=== PATIENT | female | born 1960 | race Caucasian/White ===

== ENCOUNTER 2017-05-11 13:54 | Observation (INO) | payer OTHER ==
[~2017-05-11] VITALS: Ht 170.2 cm; Wt 151.9 kg
[~2017-05-11 13:54] MED LIST: ATEN50TA PO; BENA40TA PO; GABA600T PO; GLIM2TAB PO; LEVO175T2 PO; LISD40 PO; LORA-392 PO; MEDR4PAK PO; METF1000 PO; NAPR500 PO; ROPI1TAB PO; VENL150T PO; ZANT150T2 PO
[2017-05-11] MEDS ORDERED: ACETAMINOPHEN/HYDROcodone 325 MG/5 MG TAB PO PRN (18:15)
[2017-05-11] MEDS ORDERED: NALOXONE HCL 0.4 MG/ML AMP IV PUSH PRN (18:15)
[2017-05-11] MEDS ORDERED: MAGNESIUM HYDROXIDE SUSP 30 ML CUP PO PRN (18:15)
[2017-05-11] MEDS ORDERED: ONDANSETRON HCL 4 MG/2 ML VIAL IVP PRN (18:15)
[2017-05-11] MEDS ORDERED: SODIUM CHLORIDE 0.9% FLUSH 10 ML FLUSH IV FLUSH PRN (18:15)
[2017-05-11 20:00] VITALS: BP 134/63; PULSE 74; RESP 22; TEMP 97.1; O2SAT 96
[2017-05-11] MEDS: SODIUM CHLOR 0.9% 1000 ML INJ 1,000 ML IV SCH (20:31)
[2017-05-11] MEDS: SODIUM CHLORIDE 0.9% FLUSH 10 ML FLUSH IV FLUSH SCH (20:31)
[2017-05-11] MEDS ORDERED: ENOXAPARIN SODIUM 40 MG/0.4 ML SYRINGE SQ SCH (21:00)
[2017-05-11 23:33] VITALS: O2SAT 97
[2017-05-12] VITALS: BP 140/63; PULSE 72; RESP 22; TEMP 97.5; O2SAT 97
[2017-05-12] MEDS: SODIUM CHLOR 0.9% 1000 ML INJ 1,000 ML IV SCH ×2 (04:13→14:11)
[2017-05-12] MEDS: ACETAMINOPHEN/HYDROcodone 325 MG/10 MG TAB PO PRN ×2 (04:17→14:34)
[2017-05-12 07:50] VITALS: BP 153/67; PULSE 73; RESP 20; TEMP 97.4; O2SAT 96
[2017-05-12] MEDS: SODIUM CHLORIDE 0.9% FLUSH 10 ML FLUSH IV FLUSH SCH (08:08)
[2017-05-12] MEDS: LACTOBACILLUS ACIDOPHILUS TAB PO SCH ×2 (08:08→13:23)
[2017-05-12 08:25] LABS: AUTOMATED NEUTROPHIL # 4.6 TH/MM3 (1.8-7.7); BASOPHIL % 0.6 % (0.0-2.0); EOSINOPHIL # 0.4 TH/MM3 (0-0.4); EOSINOPHIL % 5.2 % (0.0-4.0); HEMATOCRIT 32.4 % (35.0-46.0); HEMOGLOBIN 11.2 GM/DL (11.6-15.3); LYMPH % 27.2 % (9.0-44.0); LYMPHOCYTE # 2.1 TH/MM3 (1.0-4.8); MEAN CELL VOLUME 80.7 FL (80.0-100.0); MEAN CORPUSCULAR HEMOGLOBIN 27.8 PG (27.0-34.0); MEAN CORPUSCULAR HGB CONC 34.5 % (32.0-36.0); MEAN PLATELET VOLUME 9.3 FL (7.0-11.0); MONO % 7.9 % (0.0-8.0); MONOCYTE # 0.6 TH/MM3 (0-0.9); NEUT % 59.1 % (16.0-70.0); PLATELET COUNT 163 TH/MM3 (150-450); RED BLOOD COUNT 4.01 MIL/MM3 (4.00-5.30); RED CELL DISTRIBUTION WIDTH 14.8 % (11.6-17.2); WHITE BLOOD COUNT 7.7 TH/MM3 (4.0-11.0)
[2017-05-12 08:49] LABS: CHLORIDE 104 MEQ/L (98-107); SODIUM (NA) 138 MEQ/L (136-145)
[2017-05-12 08:52] LABS: ALBUMIN 2.7 GM/DL (3.4-5.0); BICARBONATE 27.4 MEQ/L (21.0-32.0); BLOOD UREA NITROGEN 19 MG/DL (7-18); CALCIUM 8.1 MG/DL (8.5-10.1); GLUCOSE,RANDOM 124 MG/DL (74-106)
[2017-05-12 08:55] LABS: ALT (GPT) 23 U/L (10-53); AST (GOT) 15 U/L (15-37); CREATININE 0.76 MG/DL (0.50-1.00); GLOMERULAR FILTRATION RATE 79 ML/MIN (>89)
[2017-05-12 08:57] LABS: TOTAL BILIRUBIN ADULT 0.5 MG/DL (0.2-1.0); TOTAL PROTEIN 6.7 GM/DL (6.4-8.2)
[2017-05-12 08:58] LABS: ALKALINE PHOSPHATASE 78 U/L (45-117)
--- NOTE | 2017-05-12 10:02 | HHI.HP ---
HPI Service [facility] Primary Care Physician Unknown Admission Diagnosis Pneumonia Diagnoses: (1) Abnormal urinalysis (2) Pneumonia Chief Complaint: Shortness of breath Cough Fever and chills Travel History International Travel<30 Days: No Contact w/Intl Traveler <30 Da: No Traveled to Known Affected Are: No History of Present Illness This is a pleasant 56-year-old female patient with a known medical history of anxiety depression, diabetes, hypertension, asthma and GERD who presented to the ED with complaints of productive cough, shortness of breath, subjective fever and chills 4 days. Patient states evening she started to develop a cough with yellow phlegm, states she did have subjective fevers although she did not check her temperature at home with associated chills and shortness of breath. Patient presented with elevated d-dimer, CT of the chest performed showing no PE. There was patchy airspace disease noted, diagnosed with bronchopneumonia. There was also found that patient had an abnormal UA and ED. Placed on antibiotics reflectively. Review of Systems Constitutional: COMPLAINS OF: Fever, Chills Eyes: DENIES: Blurred vision, Diplopia Respiratory: COMPLAINS OF: Cough, Sputum production, Shortness of breath Cardiovascular: DENIES: Chest pain Gastrointestinal: DENIES: Abdominal pain, Black stools, Diarrhea, Nausea, Vomiting Musculoskeletal: DENIES: Joint pain Neurologic: DENIES: Abnormal gait Psychiatric: COMPLAINS OF: Anxiety Except as stated in HPI: all other systems reviewed are Neg Past Family Social History Past Medical History Hypertension Diabetes Thyroid disease Anxiety and depression Asthma GERD Past Surgical History Thyroidectomy Cholecystectomy Tonsillectomy D&C Hysterectomy Reported Medications Active Reported Vyvanse (Lisdexamfetamine Dimesylate) 40 Mg Cap 50 Mg PO DAILY Ropinirole 1 Mg Tab 2 Mg PO HS Atenolol 50 Mg Tab 50 Mg PO DAILY Venlafaxine ER 24 HR (Venlafaxine HCl) 150 Mg Tab 150 Mg PO DAILY Benazepril (Benazepril HCl) 40 Mg Tab 40 Mg PO DAILY Zantac (Ranitidine HCl) 150 Mg Tab 150 Mg PO DAILY Levothyroxine (Levothyroxine Sodium) 175 Mcg Tab 175 Mcg PO DAILY Ativan (Lorazepam) 0.5 Mg Tab 0.5 Mg PO Q8H PRN Gabapentin 600 Mg Tab 600 Mg PO TID Glimepiride 2 Mg Tab 2 Mg PO DAILY Take with breakfast or first main meal Metformin (Metformin HCl) 1,000 Mg Tab 1,000 Mg PO BIDPC Allergies: Coded Allergies: No Known Allergies (Verified Allergy, Unknown, 05/11/17) Active Ordered Medications Current Medications Medications (Trade) Dose Ordered Sig/Marielena Route Start Time Stop Time Status Last Admin Sodium Chloride 1,000 ml @ 100 mls/hr Q10H IV 05/11/17 18:11 05/12/17 04:13 (NS Flush) 2 ml UNSCH PRN IV FLUSH 05/11/17 18:15 (NS Flush) 2 ml BID IV FLUSH 05/11/17 21:00 05/11/17 20:31 (Zofran Inj) 4 mg Q6H PRN IVP 05/11/17 18:15 (Lovenox Inj) 40 mg Q24H SQ 05/11/17 21:00 05/11/17 20:31 ([place] 5-325 Mg) 1 tab Q4H PRN PO 05/11/17 18:15 ([place] 10-325 Mg) 1 tab Q4H PRN PO 05/11/17 18:15 05/12/17 04:17 (Narcan Inj) 0.4 mg UNSCH PRN IV PUSH 05/11/17 18:15 (Milk Of Magnesia Liq) 30 ml Q12H PRN PO 05/11/17 18:15 (Lactinex) 1 tab TID PO 05/12/17 09:00 05/12/17 13:23 Ceftriaxone Sodium 1000 mg/ Sodium Chloride 100 ml @ 200 mls/hr Q24H IV 05/12/17 17:00 Azithromycin 500 mg/Sodium Chloride 250 ml @ 250 mls/hr Q24H IV 05/12/17 18:00 Family History Maternal medical history significant for COPD. Paternal medical history significant for pancreatic cancer. Social History Patient denies any tobacco use, alcohol or illicit drug use. Physical Exam Vital Signs Vital Signs Date Time Temp Pulse Resp B/P (MAP) Pulse Ox O2 Delivery O2 Flow Rate FiO2 05/12/17 00:00 97.5 72 22 140/63 (88) 97 05/11/17 23:33 97 Nasal Cannula 3.00 05/11/17 20:00 97.1 74 22 134/63 (86) 96 Physical Exam GENERAL: Well-developed, well-nourished obese female patient in [facility]. SKIN: Warm and dry. No rash. HEAD: Normocephalic. Atraumatic. EYES: Pupils equal and round. No scleral icterus. No injection or drainage. ENT: No nasal bleeding or discharge. Mucous membranes pink and moist. NECK: Supple. Trachea midline. CARDIOVASCULAR: Regular rate and rhythm. S1, S2 noted. No murmur appreciated. RESPIRATORY: No accessory muscle use. Right posterior lung field expiratory wheezing. Breath sounds equal bilaterally. GASTROINTESTINAL: Abdomen soft, non-tender, nondistended. Normoactive bowel sounds x4. MUSCULOSKELETAL: No obvious deformities. Extremities without clubbing, cyanosis , or edema. NEUROLOGICAL: Awake and alert. No obvious cranial nerve deficits. Motor grossly within normal limits. 5/5 muscle strength in bilateral upper and lower extremities. Normal speech. PSYCHIATRIC: Appropriate mood and affect; insight and judgment normal. Laboratory Laboratory Tests Test 05/12/17 07:45 White Blood Count 7.7 Red Blood Count 4.01 Hemoglobin 11.2 Hematocrit 32.4 Mean Corpuscular Volume 80.7 Mean Corpuscular Hemoglobin 27.8 Mean Corpuscular Hemoglobin Concent 34.5 Red Cell Distribution Width 14.8 Platelet Count 163 Mean Platelet Volume 9.3 Neutrophils (%) (Auto) 59.1 Lymphocytes (%) (Auto) 27.2 Monocytes (%) (Auto) 7.9 Eosinophils (%) (Auto) 5.2 Basophils (%) (Auto) 0.6 Neutrophils # (Auto) 4.6 Lymphocytes # (Auto) 2.1 Monocytes # (Auto) 0.6 Eosinophils # (Auto) 0.4 Basophils # (Auto) 0.0 CBC Comment DIFF FINAL Differential Comment Blood Urea Nitrogen 19 Creatinine 0.76 Random Glucose 124 Total Protein 6.7 Albumin 2.7 Calcium Level 8.1 Alkaline Phosphatase 78 Aspartate Amino Transf (AST/SGOT) 15 Alanine Aminotransferase (ALT/SGPT) 23 Total Bilirubin 0.5 Sodium Level 138 Potassium Level 4.2 Chloride Level 104 Carbon Dioxide Level 27.4 Anion Gap 7 Estimat Glomerular Filtration Rate 79 Result Diagram: 05/12/17 0745 05/12/17 0745 Septic Shock Reassessment Septic shock perfusion: reassessment completed Caprini VTE Risk Assessment Caprini VTE Risk Assessment: No/Low Risk (score <= 1) Caprini Risk Assessment Model Point Value = 1 Point Value = 2 Point Value = 3 Point Value = 5 Age 41-60 Minor surgery BMI > 25 kg/m2 Swollen legs Varicose veins or History of unexplained or recurrent spontaneous Oral contraceptives or hormone replacement Sepsis (< 1 month) Serious lung disease, including pneumonia (< 1 month) Abnormal pulmonary function Acute myocardial infarction Congestive heart failure (< 1 month) History of inflammatory bowel disease Medical patient at bed rest Age 61-74 Arthroscopic surgery Major open surgery (> 45 min) Laparoscopic surgery (> 45 min) Malignancy Confined to bed (> 72 hours) Immobilizing plaster cast Central venous access Age >= 75 History of VTE Family history of VTE Factor V Leiden Prothrombin [id number] Lupus anticoagulant Anticardiolipin antibodies Elevated serum homocysteine Heparin-induced thrombocytopenia Other congenital or acquired thrombophilia Stroke (< 1 month) Elective arthroplasty Hip, pelvis, or leg fracture Acute spinal cord injury (< 1 month) Prophylaxis Regimen Total Risk Factor Score Risk Level Prophylaxis Regimen 0-1 Low Early ambulation 2 Moderate Order ONE of the following: *Sequential Compression Device (SCD) *Heparin 5000 units SQ BID 3-4 Higher Order ONE of the following medications: *Heparin 5000 units SQ TID *Enoxaparin/Lovenox 40 mg SQ daily (WT < 150 kg, CrCl > 30 mL/min) *Enoxaparin/Lovenox 30 mg SQ daily (WT < 150 kg, CrCl > 10-29 mL/min) *Enoxaparin/Lovenox 30 mg SQ BID (WT < 150 kg, CrCl > 30 mL/min) AND/OR *Sequential Compression Device (SCD) 5 or more Highest Order ONE of the following medications: *Heparin 5000 units SQ TID (Preferred with Epidurals) *Enoxaparin/Lovenox 40 mg SQ daily (WT < 150 kg, CrCl > 30 mL/min) *Enoxaparin/Lovenox 30 mg SQ daily (WT < 150 kg, CrCl > 10-29 mL/min) *Enoxaparin/Lovenox 30 mg SQ BID (WT < 150 kg, CrCl > 30 mL/min) AND *Sequential Compression Device (SCD) Assessment and Plan Problem List: (1) Pneumonia ICD Code: J18.9 - Pneumonia, unspecified organism Plan: Patient presented with shortness of breath, wheezing, cough, subjective fever and chills. Chest x-ray reviewed showing minimal basilar atelectasis. D-dimer was elevated on presentation. CTA was performed and reviewed showing no evidence of PE. Patchy airspace disease at the right lung base most characteristic of bronchopneumonia. CBC and BMP reviewed, essentially unremarkable. Afebrile. No leukocytosis. Was placed on ceftriaxone and azithromycin IV added lactobacillus. Given IV fluids. Pain control with [place] as needed. Patient symptoms have improved since presentation, patient states she feels much better. Required supplemental O2 overnight. Doing well on room air. (2) Abnormal urinalysis ICD Code: R82.90 - Unspecified abnormal findings in urine Plan: Urine culture showing no growth for 24 hours. Assessment and Plan We will discharge patient home with p.o. antibiotics and short steroid taper for wheezing. Encouraged follow-up with PCP. Discussed Condition With Patient Corinne,[place] ZHONG May 12, 2017 10:02
[2017-05-12 11:50] VITALS: BP 160/76; PULSE 68; RESP 20; TEMP 98; O2SAT 96
--- NOTE | 2017-05-12 12:23 | HHI.HP ---
[facility] Ad[facility] Diagnosis Diagnoses: Travel History International Travel<30 Days: No Contact w/Intl Traveler <30 Da: No Traveled to Known Affected Are: No Past Family Social History Allergies: Coded Allergies: No Known Allergies (Verified Allergy, Unknown, 05/11/17) Physical Exam Vital Signs Vital Signs Date Time Temp Pulse Resp B/P (MAP) Pulse Ox O2 Delivery O2 Flow Rate FiO2 05/12/17 00:00 97.5 72 22 140/63 (88) 97 05/11/17 23:33 97 Nasal Cannula 3.00 05/11/17 20:00 97.1 74 22 134/63 (86) 96 Physical Exam GENERAL: This is a well-nourished, well-developed patient, in no apparent distress. SKIN: No rashes, ecchymoses or lesions. Cool and dry. HEAD: Atraumatic. Normocephalic. No temporal or scalp tenderness. EYES: Pupils equal round and reactive. Extraocular motions intact. No scleral icterus. No injection or drainage. ENT: Nose without bleeding, purulent drainage or septal hematoma. Throat without erythema, tonsillar hypertrophy or exudate. Uvula midline. Airway patent. NECK: Trachea midline. No JVD or lymphadenopathy. Supple, nontender, no meningeal signs. CARDIOVASCULAR: Regular rate and rhythm without murmurs, gallops, or rubs. RESPIRATORY: Clear to auscultation. Breath sounds equal bilaterally. No wheezes , rales, or rhonchi. GASTROINTESTINAL: Abdomen soft, non-tender, nondistended. No hepato-splenomegaly , or palpable masses. No guarding. MUSCULOSKELETAL: Extremities without clubbing, cyanosis, or edema. No joint tenderness, effusion, or edema noted. No calf tenderness. Negative Homans sign bilaterally. NEUROLOGICAL: Awake and alert. Cranial nerves II through XII intact. Motor and sensory grossly within normal limits. Five out of 5 muscle strength in all muscle groups. Normal speech. Laboratory Laboratory Tests Test 05/12/17 07:45 White Blood Count 7.7 Red Blood Count 4.01 Hemoglobin 11.2 Hematocrit 32.4 Mean Corpuscular Volume 80.7 Mean Corpuscular Hemoglobin 27.8 Mean Corpuscular Hemoglobin Concent 34.5 Red Cell Distribution Width 14.8 Platelet Count 163 Mean Platelet Volume 9.3 Neutrophils (%) (Auto) 59.1 Lymphocytes (%) (Auto) 27.2 Monocytes (%) (Auto) 7.9 Eosinophils (%) (Auto) 5.2 Basophils (%) (Auto) 0.6 Neutrophils # (Auto) 4.6 Lymphocytes # (Auto) 2.1 Monocytes # (Auto) 0.6 Eosinophils # (Auto) 0.4 Basophils # (Auto) 0.0 CBC Comment DIFF FINAL Differential Comment Blood Urea Nitrogen 19 Creatinine 0.76 Random Glucose 124 Total Protein 6.7 Albumin 2.7 Calcium Level 8.1 Alkaline Phosphatase 78 Aspartate Amino Transf (AST/SGOT) 15 Alanine Aminotransferase (ALT/SGPT) 23 Total Bilirubin 0.5 Sodium Level 138 Potassium Level 4.2 Chloride Level 104 Carbon Dioxide Level 27.4 Anion Gap 7 Estimat Glomerular Filtration Rate 79 Result Diagram: 05/12/17 0745 05/12/17 0745 Caprini VTE Risk Assessment Caprini Risk Assessment Model Point Value = 1 Point Value = 2 Point Value = 3 Point Value = 5 Age 41-60 Minor surgery BMI > 25 kg/m2 Swollen legs Varicose veins or History of unexplained or recurrent spontaneous Oral contraceptives or hormone replacement Sepsis (< 1 month) Serious lung disease, including pneumonia (< 1 month) Abnormal pulmonary function Acute myocardial infarction Congestive heart failure (< 1 month) History of inflammatory bowel disease Medical patient at bed rest Age 61-74 Arthroscopic surgery Major open surgery (> 45 min) Laparoscopic surgery (> 45 min) Malignancy Confined to bed (> 72 hours) Immobilizing plaster cast Central venous access Age >= 75 History of VTE Family history of VTE Factor V Leiden Prothrombin [id number] Lupus anticoagulant Anticardiolipin antibodies Elevated serum homocysteine Heparin-induced thrombocytopenia Other congenital or acquired thrombophilia Stroke (< 1 month) Elective arthroplasty Hip, pelvis, or leg fracture Acute spinal cord injury (< 1 month) Prophylaxis Regimen Total Risk Factor Score Risk Level Prophylaxis Regimen 0-1 Low Early ambulation 2 Moderate Order ONE of the following: *Sequential Compression Device (SCD) *Heparin 5000 units SQ BID 3-4 Higher Order ONE of the following medications: *Heparin 5000 units SQ TID *Enoxaparin/Lovenox 40 mg SQ daily (WT < 150 kg, CrCl > 30 mL/min) *Enoxaparin/Lovenox 30 mg SQ daily (WT < 150 kg, CrCl > 10-29 mL/min) *Enoxaparin/Lovenox 30 mg SQ BID (WT < 150 kg, CrCl > 30 mL/min) AND/OR *Sequential Compression Device (SCD) 5 or more Highest Order ONE of the following medications: *Heparin 5000 units SQ TID (Preferred with Epidurals) *Enoxaparin/Lovenox 40 mg SQ daily (WT < 150 kg, CrCl > 30 mL/min) *Enoxaparin/Lovenox 30 mg SQ daily (WT < 150 kg, CrCl > 10-29 mL/min) *Enoxaparin/Lovenox 30 mg SQ BID (WT < 150 kg, CrCl > 30 mL/min) AND *Sequential Compression Device (SCD) Clarita Sun May 12, 2017 12:23
--- NOTE | 2017-05-12 14:43 | HHI.DCPOC ---
Discharge Care Plan Diagnosis: (1) Pneumonia Goals to Promote Your Health * To prevent worsening of your condition and complications * To maintain your health at the optimal level Directions to Meet Your Goals Take your medications as prescribed Follow your dietary instruction Follow activity as directed Keep your appointments as scheduled Take your immunizations and boosters as scheduled If your symptoms worsen call your PCP, if no PCP go to Urgent Care Center or Emergency Room Smoking is Dangerous to Your Health. Avoid second hand smoke Call the 24-hour hour crisis hotline for domestic abuse at Clarita Sun May 12, 2017 14:43
[2017-05-12] MEDS ORDERED: PRED10PA PO (14:45)
[2017-05-12] MEDS ORDERED: LEVO750T3 PO (14:45)
[2017-05-12] MEDS ORDERED: methylPREDNISolone SOD SUCC 40 MG/1 ML VIAL IV PUSH ONE (14:45)
[2017-05-12 14:50] VITALS: O2SAT 99
[2017-05-12] MEDS ORDERED: ATENOLOL 50 MG TAB PO SCH (15:00)
[2017-05-12 15:22] VITALS: O2SAT 97
[2017-05-12] MEDS ORDERED: VENLAFAXINE HCL XR 75 MG CAP PO SCH (16:00)
[2017-05-12] MEDS ORDERED: GLIMEPIRIDE 2 MG TAB PO SCH (16:00)
[2017-05-12] MEDS ORDERED: FAMOTIDINE 20 MG TAB PO SCH (16:00)
[2017-05-12] MEDS ORDERED: LEVOTHYROXINE SODIUM 100 MCG TAB PO SCH (16:00)
[2017-05-12] MEDS ORDERED: LEVOTHYROXINE SODIUM 75 MCG TAB PO SCH (16:00)
[2017-05-12] MEDS ORDERED: LISINOPRIL 20 MG TAB PO SCH (16:00)
[2017-05-12] MEDS ORDERED: cefTRIAXone INJ 1,000 MG in SODIUM CHLORIDE 0.9% INJ 100 ML IV SCH (17:00)
[2017-05-12] MEDS ORDERED: AZITHROMYCIN INJ 500 MG in SODIUM CHLOR 0.9% 250 ML INJ 250 ML IV SCH (18:00)
[2017-05-12] MEDS ORDERED: metFORMIN HCL 500 MG TAB PO SCH (18:00)
[2017-05-12] MEDS ORDERED: GABAPENTIN 300 MG CAP PO SCH (18:00)
[2017-05-13] MEDS ORDERED: VYVANSE 50 MG PO SCH (08:00)
== END 2017-05-12 15:51 | disposition home or self-care (01) ==
LOC: PHEDDLT 13:54 → PH3B 19:25 → INTOOBSV 19:25
PROVIDERS: ADMIT Hospitalist; ATTEND Hospitalist
DX: J18.9 Pneumonia, unspecified organism (principal); R82.90 Unspecified abnormal findings in urine; J45.909 Unspecified asthma, uncomplicated; K21.9 Gastro-esophageal reflux disease without esophagitis; I10 Essential (primary) hypertension; E11.9 Type 2 diabetes mellitus without complications; F41.8 Other specified anxiety disorders; E07.9 Disorder of thyroid, unspecified; R05 Cough; R50.9 Fever, unspecified; R06.2 Wheezing; R06.02 Shortness of breath; R79.89 Other specified abnormal findings of blood chemistry; Z79.84 Long term (current) use of oral hypoglycemic drugs
CPT/HCPCS: 71046; 71275; 80048; 80053; 81001; 82550; 83735; 83880; 84484; 85025; 85379; 85610; 85730; 87040; 87086; 87804; 93005; 96365; 96372; 96374; 96375; 99285; G0378; J0456; J0696; J1650; J2920; J7030; J7050; Q9967